=== PATIENT | female | born 1995 | race Caucasian/White ===

== ENCOUNTER 2016-09-17 12:32 | Emergency (ER) | payer OTHER ==
[2016-09-17 12:38] VITALS: BP 104/54
--- NOTE | 2016-09-17 13:20 | ED ---
Head Injury - HPI Summary HPI Summary: Patient was out drinking last night when she fell, striking her face. She denies LOC, vomiting or neck pain. She awoke this morning and did not remember all the circumstances of the fall, and also had a headache and felt lethargic. She says she did not drink as much as she normally drinks when she doesn't remember things. She denies vision changes, fever, or ear pain. - History Of Current Complaint Chief Complaint: EDHeadInjury Stated Complaint: HEAD INJURY Time Seen by Provider: 09/17/16 12:43 Hx Obtained From: Patient Mechanism Of Injury: Fall From A Standing Position Onset/Duration: Started Hours Ago Onset of Pain: Hours Severity Currently: Moderate Severity Initially: Mild Pain Intensity: 5 Location of Head Injury: Frontal - right cheek Character: Dull, Aching Associated Signs And Symptoms: Memory Loss, Bruising, Headache PMH/Surg Hx/FS Hx/Imm Hx Previously Healthy: Yes Infectious Disease History: No Infectious Disease History: Denies: Traveled Outside the in Last 30 Days - Family History Known Family History: Positive: None - Social History Occupation: Student Lives: Alone Alcohol Use: Occasionally Substance Use Type: Reports: None Smoking Status (MU): Never Smoked Tobacco Review of Systems Negative: Photophobia, Blurred Vision, Diplopia Negative: Dental Pain Negative: Myalgia, Decreased ROM, Edema Positive: Bruising - right cheek Positive: Headache. Negative: Weakness, Paresthesia, Numbness All Other Systems Reviewed And Are Negative: Yes Physical Exam Triage Information Reviewed: Yes Vital Signs On Initial Exam: Initial Vitals Temp Pulse Resp BP Pulse Ox 97.9 F 80 20 104/54 98 09/17/16 12:36 09/17/16 12:36 09/17/16 12:36 09/17/16 12:36 09/17/16 12:36 Vital Signs Reviewed: Yes Appearance: Positive: Well-Appearing, No Pain Distress, Well-Nourished Skin: Positive: Warm, Skin Color Reflects Adequate Perfusion, Dry, Tender - nickel size bruise to right cheek, Soft Head/Face: Positive: Normal Head/Face Inspection Eyes: Positive: EOMI, DAVID, Conjunctiva Clear ENT: Positive: Hearing grossly normal, Pharynx normal, TMs normal Neck: Positive: Supple, Nontender Respiratory/Lung Sounds: Positive: Breath Sounds Present Cardiovascular: Positive: RRR Abdomen Description: Positive: Nontender, Soft Musculoskeletal: Positive: Strength/ROM Intact. Negative: Edema Left, Edema Right Neurological: Positive: Sensory/Motor Intact, Alert, Oriented to Person Place, Time, NV Bundle Intact Distally, Normal Gait Psychiatric: Positive: Affect/Mood Appropriate AVPU Assessment: Alert Diagnostics - Vital Signs Vital Signs Temp Pulse Resp BP Pulse Ox 09/17/16 12:36 97.9 F 80 20 104/54 98 - Laboratory Lab Statement: Any lab studies that have been ordered have been reviewed, and results considered in the medical decision making process. - CT No standard instances CT Interpretation: No Acute Changes CT Interpretation Completed By: Radiologist Head Injury Course/Dx - Diagnoses Differential Diagnosis/HQI/PQRI: Cervical Sprain, Contusion, Hematoma, Intracranial Bleed, Laceration, Mandible Fracture, Nasal Fracture, Skull Fracture, Zygomatic Fracture Provider Diagnoses: Facial contusion, Head injury Discharge - Discharge Plan Condition: Stable Disposition: HOME Patient Education Materials: Head Injury (ED) Forms: *Work Release Referrals: No Primary Care Phys,NOPCP [Primary Care Provider] - Additional Instructions: Please follow-up with Dianna as needed. Use tylenol and ibuprofen for pain. Rest and drink extra fluids. Return to the emergency department if symptoms worsen.
--- NOTE | 2016-09-17 13:23 | RAD ---
INDICATION: Headache, nausea and fatigue after head trauma and alcohol consumption the previous night. COMPARISON: None. TECHNIQUE: Contiguous axial sections of the brain were obtained from the skull base to the vertex without contrast. FINDINGS: The ventricles, cisterns and sulci are within normal limits. The chavez-white matter differentiation is adequately maintained and there is no sulcal effacement. No significant focal abnormality or mass effect is present. There is no evidence for intracranial hemorrhage. No significant focal osseous abnormality is present. The visualized portion of the paranasal sinuses and mastoid air cells appear clear. IMPRESSION: Normal CT of the brain.
== END 2016-09-17 14:08 | disposition home or self-care (01) ==
LOC: ED 12:32
DX: S00.83XA Contusion of other part of head, initial encounter (principal); S09.90XA Unspecified injury of head, initial encounter; W19.XXXA Unspecified fall, initial encounter; Y93.9 Activity, unspecified; Y92.9 Unspecified place or not applicable; Y99.9 Unspecified external cause status
CPT/HCPCS: 70450; 99281

== ENCOUNTER 2017-05-27 10:01 | Emergency (ER) | payer OTHER ==
--- NOTE | 2017-05-27 11:19 | RAD ---
Indication: Left knee pain. 4 views of left knee are reviewed. There is no fracture or dislocation. No other bone or joint abnormality is noted. IMPRESSION: No fracture of the left knee is noted.
[2017-05-27] MEDS ORDERED: Ibuprofen TAB* 600 MG PO ONE (12:11)
--- NOTE | 2017-05-27 12:13 | ED ---
Lower Extremity - HPI Summary HPI Summary: 21 female presents to ED with complaints of left knee pain that began yesterday evening while working out at the gym, 05/26/17. States pain got worse this morning. Patient states she was doing a lunge when she felt/heard a pop and has had difficulty bearing weight since. Patient states the pain is worse when walking and bearing weight. Denies any obvious swelling, deformity or bruising. Has not taken any medication. No previous injury. No other injuries. No PMHx. Is able to bend but hurts. States pain is in the front of her knee. Denies numbness/tingling. - History of Current Complaint Chief Complaint: EDExtremityLower Stated Complaint: LT KNEE PAIN Time Seen by Provider: 05/27/17 10:24 Hx Obtained From: Patient Mechanism Of Injury: Twisted Onset of Pain: Immediate, Post Accident Onset/Duration: Days - 1 Severity Initially: Moderate Severity Currently: Moderate Pain Intensity: 7 Pain Scale Used: 0-10 Numeric Timing: Constant - when moving or bearing weight Location: Is Discrete @ - left knee Character Of Pain: Sharp, Aching - left knee Associated Signs And Symptoms: Positive: Knee Pain - left Aggravating Factor(s): Standing, Ambulation, Movement, Weight Bearing Alleviating Factor(s): Rest Able to Bear Weight: Yes - however painful, so refrains and uses crutches - Allergies/Home Medications Allergies/Adverse Reactions: Allergies Allergy/AdvReac Type Severity Reaction Status Date / Time No Known Allergies Allergy Verified 05/27/17 10:12 PMH/Surg Hx/FS Hx/Imm Hx Endocrine/Hematology History: Denies: Hx Anticoagulant Therapy, Hx Diabetes Cardiovascular History: Denies: Hx Hypertension Respiratory History: Denies: Hx Asthma - Surgical History Surgery Procedure, Year, and Place: n/a - Immunization History Immunizations Up to Date: Yes Infectious Disease History: No Infectious Disease History: Denies: Traveled Outside the [place] in Last 30 Days - Family History Known Family History: Positive: None - Social History Alcohol Use: Occasionally Substance Use Type: Reports: None Smoking Status (MU): Never Smoked Tobacco Review of Systems Constitutional: Negative Respiratory: Negative Gastrointestinal: Negative Positive: Arthralgia, Myalgia, Decreased ROM - left knee Skin: Negative Neurological: Negative All Other Systems Reviewed And Are Negative: Yes Physical Exam Triage Information Reviewed: Yes Vital Signs On Initial Exam: Initial Vitals Temp Pulse Resp BP Pulse Ox 99.1 F 88 17 95/54 96 05/27/17 10:09 05/27/17 10:09 05/27/17 10:09 05/27/17 10:09 05/27/17 10:09 Vital Signs Reviewed: Yes Appearance: Positive: Well-Appearing, Well-Nourished, Pain Distress - mild Skin: Positive: Warm, Skin Color Reflects Adequate Perfusion, Dry. Negative: Cold, Numb, Cyanosis @, Pale, Erythema @ Head/Face: Positive: Normal Head/Face Inspection Eyes: Positive: Conjunctiva Clear ENT: Positive: Pharynx normal Neck: Positive: Supple, Nontender Respiratory/Lung Sounds: Positive: Clear to Auscultation, Breath Sounds Present. Negative: Rales, Rhonchi, Wheezes Cardiovascular: Positive: Normal, RRR, Pulses are Symmetrical in both Upper and Lower Extremities - 2+ pedal. Negative: Murmur, Rub Musculoskeletal: Positive: Normal, Strength/ROM Intact - however pain with full flexion/extension of left knee, Pain @ - left knee palpation anterior patella region, no obvious deformity, crepitus or step off, Other - rest of msk exam normal. no significant laxity noted, somehwat exam limited due to patient. Negative: Limited @, Interruption @ Neurological: Positive: Normal, Sensory/Motor Intact, Alert, Oriented to Person Place, Time, NV Bundle Intact Distally, Unable to Assess Gait Diagnostics - Vital Signs Vital Signs Temp Pulse Resp BP Pulse Ox 05/27/17 10:09 99.1 F 88 17 95/54 96 - Laboratory Lab Statement: Any lab studies that have been ordered have been reviewed, and results considered in the medical decision making process. - Radiology left knee Xray Interpretation: No Acute Changes - : No fracture of the left knee is noted. Radiology Interpretation Completed By: Radiologist Lower Extremity Course/Dx - Course Course Of Treatment: xray obtained and negative. given ibuprofen. immobilizer and crutches. appears to have sprained knee, possibly ligament damage. follow up with pcp. aware of worsening signs and symptoms. RICE. no other concerns at this time. - Diagnoses Differential Diagnosis/HQI/PQRI: Positive: Contusion, Dislocation, Fracture ( Closed), Sprain, Strain Provider Diagnoses: Sprain of left knee Discharge - Discharge Plan Condition: Stable Disposition: HOME Patient Education Materials: Knee Sprain (ED), Knee Immobilizer (ED) Referrals: [facility] - Chintan SANTIZO [Primary Care Provider] - Amy Bingham MD [Medical Doctor] - Additional Instructions: Continue ibuprofen for pain and inflammation. Rest, ice and elevate. Refrain from bearing weight and walking without brace and crutches until symptoms improve. If symptoms do not improve please seek medical attention promptly. Follow up with PCP/Ortho.
[2017-05-27 12:19] VITALS: BP 112/63
== END 2017-05-27 12:18 | disposition home or self-care (01) ==
LOC: ED 10:01 → MERGE 10:01 → ED 12:18
DX: S83.92XA Sprain of unspecified site of left knee, initial encounter (principal); X58.XXXA Exposure to other specified factors, initial encounter; Y93.B9 Activity, other involving muscle strengthening exercises; Y92.89 Other specified places as the place of occurrence of the external cause
CPT/HCPCS: 99282; A9270-GY